=== PATIENT | male | born 1975 | race Caucasian/White ===

== ENCOUNTER 2017-10-09 05:24 | Day surgery (SDC) | payer BC, OTHER ==
[~2017-10-09] VITALS: Ht 175.3 cm; Wt 91.2 kg
--- NOTE | ~2017-10-09 | O ---
[address] [address] OPERATIVE REPORT Name: OLIVER HARMON Room #: DEP [facility]..#: [id number] Admission: 10/09/17 Attend Phys: Aldo Lim MD Discharge: 10/09/17 Date of : 79 Report #: [id number] THIS REPORT FOR: //name// CC: EMILY physician/PCP Aldo Lim DATE OF SERVICE: 10/09/2017 SERVICE: Orthopedics. FACILITY: [facility]. SURGEON: Aldo Lim MD INFORMATION CLERK BROKERAGE: None. PREOPERATIVE DIAGNOSES: 1. Left hip pain. 2. Left hip femoroacetabular impingement, combined type. 3. Left hip acetabular labral tear. POSTOPERATIVE DIAGNOSES: 1. Left hip pain. 2. Left hip femoroacetabular impingement, combined type. 3. Left hip acetabular labral tear. 4. Grade 4 chondromalacia, left hip acetabulum. 5. Left hip labral calcinosis. PROCEDURES: 1. Left hip arthroscopic labral repair. 2. Left hip arthroscopic subspine acetabuloplasty. 3. Left hip arthroscopic Cam osteochondroplasty. 4. Left hip arthroscopic acetabular chondroplasty. 5. Left hip arthroscopic labral calcinosis debridement. COMPLICATIONS: None. DRAINS: None. SPECIMENS: None. ANESTHESIA: General endotracheal with regional. FINDINGS: 1. Acetabular labral repair with [place] CinchLock suture anchor x 2. 2. Labral calcinosis noted on the preoperative imaging, which was more [address] [place] [address] OPERATIVE REPORT Name: OLIVER HARMON Room #: DEP [facility] M.R.#: [id number] Admission: 10/09/17 Attend Phys: Aldo Lim MD Discharge: 10/09/17 Date of : 79 Report #: [id number] pronounced than previous x-ray. It was treated with resection with blunt dissection and shaver. The calcific lesion was noted to resolve on the intraoperative x-ray. 3. Large Cam osteochondroplasty performed. 4. Full thickness flap tear of the articular cartilage secondary to the Cam impingement, treated with debridement to a stable perimeter. This measured approximately 15-20% of the acetabular surface area. COMPLICATIONS: None. DRAINS: None. SPECIMENS: None. HISTORY AND INDICATIONS: The patient is a 42-year-old gentleman with a longstanding history of persistent progressive left hip pain that was affecting all aspects of his life including his job and activities of daily living. He was having typical impingement type pain with hip flexion activities and had physical examination and radiographic findings consistent with it. He had failed conservative measures for a few years including rest, activity modification, exercise program, medicines and modalities. He had preoperative x-rays, which showed an alpha angle of approximately 70 degrees with a very large prominent bony spur at the femoral head and neck junction. Tonnis grade was 1 and there was a small crossover sign secondary to prominent subspine region from the anterior inferior iliac spine. MRI showed a labral tear and some rim chondromalacia, however, did not show severe cartilage damage as it was ultimately encountered intraoperatively. The risks, benefits, alternatives and indications of surgery were discussed with him in detail preoperatively. The risks include but not limited to pain, bleeding, infection, injury to nerves or blood vessels, persistent pain despite surgical intervention, failure of any repairs, reconstruction, progression of any preexisting chondral injury, stiffness, need for further surgery including revision as well as ultimate arthroplasty and complications related to anesthesia such as stroke, heart attack, pulmonary complications, thromboembolic disease and . Despite these risks, he wished to proceed. PROCEDURE IN DETAIL: After the left leg was correctly identified as the operative extremity, the patient underwent placement of a single shot regional nerve block by the anesthesia team. He was then taken to the operating room where general endotracheal anesthesia was induced utilizing a fiberoptic intubation and GlideScope as the patient was noted to have anterior vocal cords; however, this was atraumatic without any complications during anesthetic induction. Prophylactic antibiotics with 2 grams Ancef were administered at appropriate time. He was padded appropriately. Bilateral lower extremities were placed in traction boots and then the left hip femoral head and neck [address] [address] OPERATIVE REPORT Name: OLIVER HARMON Room #: DEP [facility] M.R.#: [id number] Admission: 10/09/17 Attend Phys: Aldo Lim MD Discharge: 10/09/17 Date of : 79 Report #: [id number] junction was mapped out under fluoroscopy to identify the extent of his Cam deformity. The bony protuberance at the head and neck junction actually protruded beyond the apex of the femoral head on a modified Falcon view. The left leg was then prepped and draped in standard sterile fashion. A time-out procedure was performed. Traction was applied to the left leg. Total traction time was 70 minutes. Standard anterolateral followed by mid anterior working portal were established in a standard fashion. A transverse capsulotomy was performed. The labrum was noted to be detached and hanging down into the socket and there was a large area of chondromalacia also noted. The shaver was used to resect synovitis that was present in the hip and then released the capsule off the dorsal side of the labrum to allow access to the subspine region and the acetabular rim. At this point, the paralabral ossicle that was noted on the intraoperative x-ray, which was larger than on previous imaging was evaluated. There was some swelling and increased white coloration of the labrum in this area and it was palpated from the dorsal side with a blunt object and calcinosis was seen to egress from the labrum. The labral elevator was used then to perform blunt resection of this tissue and then the shaver was used to complete this. X-rays were taken to confirm complete resection of the labral calcinosis. This in part was responsible for the added traction time of 77 minutes as was the extent of the Cam deformity. After this was completed, the bur was used to perform a subspine resection addressing the extraarticular acetabular impingement and then the bur was used to abrade the acetabular rim to prepare for bleeding surface for labral refixation and then a [place] CinchLock suture anchor x 2 was utilized to perform a labral refixation with a cerclage suture due to the fraying that was present on the labrum. Then, the shaver was used to debride the frayed tissue at the chondral labral junction and at this point, visibility of the acetabular chondromalacia was better. This allowed assessment where it turned out to be a large full thickness flap tear of the acetabular rim articular cartilage secondary to chronic Cam impingement. This was fully unstable and could be folded back upon itself and I was concerned about the risk of mechanical symptoms as well as locking of the hip and the potential for fall or acute injury. As a result of this, we elected to perform a chondroplasty of just the loose segment with a biter and then completed with a shaver. After this was finished, attention was turned towards the femur. Because the Cam deformity extended proximally and laterally, the Cam resection had to be started under traction with the hip pulled in traction and then internally rotated. We then started the resection and then progressively let traction down eventually releasing all traction and progressively flexing the hip up to allow access to the full extent of the Cam deformity. The instruments were removed from the hip. X-ray was brought in to assess the extent of the resection. There was some additional bone distally on the neck that was then debrided with the bur after the instruments were placed back into the hip. I removed the instruments from the hip at this point, evaluated and felt that a [address] [address] OPERATIVE REPORT Name: OLIVER HARMON Room #: DEP [facility] M.R.#: [id number] Admission: 10/09/17 Attend Phys: Aldo Lim MD Discharge: 10/09/17 Date of : 79 Report #: [id number] complete and adequate Cam resection has been performed at this point. We placed the instruments back in his hip, lavaged the bony debris out of the joint and then proceeded with capsular repair. A total of four #2 Vicryl sutures were utilized for closure of the T-shaped capsulotomy with good repair and security. Instruments were removed from the hip. The effusion was drained. The portal sites were closed with a deep, followed by superficial Monocryl stitch. The patient was then awakened from anesthesia and taken to recovery room in stable condition. There were no complications and all counts were recorded as correct. <ELECTRONICALLY SIGNED> By: Aldo Lim MD 10/14/17 [id number] Aldo Lim MD /nt
[2017-10-09 11:00] VITALS: BP 132/80
[2017-10-09 14:15] VITALS: BP 132/80
== END 2017-10-09 15:20 | disposition home or self-care (01) ==
LOC: TBA 05:24 → OR 05:24
DX: M25.852 Other specified joint disorders, left hip (principal); S73.192A Other sprain of left hip, initial encounter; M94.252 Chondromalacia, left hip; F17.220 Nicotine dependence, chewing tobacco, uncomplicated; X58.XXXA Exposure to other specified factors, initial encounter; Y93.89 Activity, other specified; Y92.89 Other specified places as the place of occurrence of the external cause; Y99.8 Other external cause status
CPT/HCPCS: 50010; 50101; 50386; 51538; 52298; 52304; 52313; 55430; 56524; 56527; 57092; 57103; 62110; 62900; 70005